=== PATIENT | male | born 1995 | race Caucasian/White ===

== ENCOUNTER 2020-07-29 01:22 | Emergency (ER) | payer OTHER ==
[~2020-07-29] VITALS: Ht 170.2 cm; Wt 81.0 kg
--- NOTE | 2020-07-29 02:10 | PHYS DOC ---
Past History Past Medical History: Constipation General Adult EDM: Chief Complaint: ABDOMINAL PAIN HPI: HPI: ".. I ve had some generalized abdomen pain.. distention.. and now my belly button is red.. and hurts.. 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 Who presents with above hx and complaints of umbilicus cellulitis with abd. distention. Patient has not been [place] recently. Is up-to-date with vaccinations. No history immunosuppression. Has noticed he has had some serous discharge from his bellybutton and now some bloody discharge. Has developed some crusty area around umbilicus. Does have some surrounding inflammation of the umbilicus. No adenopathy. No hernia. Patient is distended. Somewhat tympanic. Patient den ies any trauma. Patient denies any intake of bad food. Patient denies any specific ill contacts. Patient follows at [facility]. No family history of colitis. Patient denies any personal history of colitis. No history of bad food intake. Review of Systems: Review of Systems: Constitutional: Denies fever or chills Eyes: Denies change in visual acuity HENT: Denies nasal congestion or sore throat Respiratory: Denies cough or shortness of breath Cardiovascular: Denies chest pain or edema GI: Complains of generalized abdominal pain, constipation, and umbilicus inflammation. Patient denies nausea, vomiting, bloody stools or diarrhea : Denies dysuria Musculoskeletal: Denies back pain or joint pain Integument: Denies rash Neurologic: Denies headache, focal weakness or sensory changes Endocrine: Denies polyuria or polydipsia Lymphatic: Denies swollen glands Psychiatric: Denies depression or anxiety Family History: Family History: Noncontributory to presentation. Current Medications: Current Meds: See nursing for home meds Allergies: Allergies: No known drug allergies. Physical Exam: PE: Constitutional: Well developed, well nourished, moderate distress, non-toxic appearance. [] HENT: Normocephalic, atraumatic, bilateral external ears normal, oropharynx moist, no oral exudates, nose normal. [] Eyes: PERRLA, EOMI, conjunctiva normal, no discharge. [] Neck: Normal range of motion, no tenderness, supple, no stridor. [] Cardiovascular:Heart rate regular rhythm, no murmur [] Lungs & Thorax: Bilateral breath sounds clear to auscultation [] Abdomen: Bowel sounds normal, soft, no tenderness, no masses, no pulsatile masses. Distended. Tympanic. Has umbilicus inflammation and cellulitis. Mild rebound pain to the umbilicus. Skin: Warm, dry, no erythema, no rash. [] Back: No tenderness, no CVA tenderness. [] Extremities: No tenderness, no cyanosis, no clubbing, ROM intact, no edema. [] No psoas sign. Neurologic: Alert and oriented X 3, normal motor function, normal sensory function, no focal deficits noted. [] Psychologic: Affect anxious, judgement normal, mood normal. [] EKG: EKG: [] Radiology/Procedures: Radiology/Procedures: [][address] [address] IMAGING REPORT Signed PATIENT: NYDIA OROZCO NACCOUNT: [id number] : 1995 LOCATION: ER AGE: 25 SEX: M EXAM STATUS: REG ER ORD. PHYSICIAN: REN SOMMERS MD REASON: distention, discomfort PROCEDURE: ACUTE ABDOMEN SERIES EXAM: 2 VIEW ABDOMEN WITH ONE VIEW CHEST. HISTORY: Abdominal pain and distention. COMPARISON: None. FINDINGS: A frontal view of the chest and supine/upright views of the abdomen are obtained. There are no confluent infiltrates. There is no pneumothorax or pleural effusion. The heart is not enlarged. There is no pneumoperitoneum. There are no distended small bowel loops or significant air-fluid levels. There is gas distally. IMPRESSION: 1. No confluent infiltrates. 2. No evidence of obstruction. Electronically signed by: Cecil Butler MD (07/29/2020 3:00 AM) [facility] DICTATED AND SIGNED BY: DARIN BUTLER MD DATE: 07/29/20 0300 CC: REN SOMMERS MD; PCP,UNKNOWN ~ Heart Score: Risk Factors: Risk Factors: DM, Current or recent (<one month) smoker, HTN, HLP, family history of CAD, obesity. Risk Scores: Score 0 - 3: 2.5% MACE over next 6 weeks - Discharge Home Score 4 - 6: 20.3% MACE over next 6 weeks - Admit for Clinical Observation Score 7 - 10: 72.7% MACE over next 6 weeks - Early Invasive Strategies Course & Med Decision Making: Course & Med Decision Making Pertinent Labs and Imaging studies reviewed. (See chart for details) Patient stay on a clear fluid diet for the next 24 hours. Patient take Tylenol and ibuprofen for pain. Patient to use peroxide clean umbilicus area 4 times a day then apply Polysporin 4 times a day. Patient take Bactrim DS twice a day. Patient follow-up primary care. Patient return if any concerns. Impression: 1. Abdomen pain-distention and constipation 2. Umbilicus cellulitis. [] Dragon Disclaimer: Dragon Disclaimer: This electronic medical record was generated, in whole or in part, using a voice recognition dictation system. Departure Departure: Disposition: 01 DC HOME SELF CARE/HOMELESS Condition: STABLE Referrals: PCP,UNKNOWN (PCP) Scripts Sulfamethoxazole/Trimethoprim (BACTRIM DS TABLET) 1 Each Tablet 1 TAB PO BID for cellulitis for 10 Days, #20 TAB 0 Refills Prov: REN SOMMERS MD 07/29/20 Bacitracin/Polymyxin B Sulfate (POLYSPORIN OINTMENT) 28.3 Gm Oint...g. 28.3 GM TP 4 x day for cellulitis, #120 MISC Prov: REN SOMMERS MD 07/29/20 Hydrogen Peroxide (HYDROGEN PEROXIDE) 1 Ml Solution 1 ML MC 4 x day to Umbilicus for cellitis for 30 Days, MISC Prov: REN SOMMERS MD 07/29/20 Dragon Disclaimer This chart was dictated in whole or in part using Voice Recognition software in a busy, high-work load, and often noisy Emergency Department environment. It may contain unintended and wholly unrecognized errors or omissions. Dragon Disclaimer This chart was dictated in whole or in part using Voice Recognition software in a busy, high-work load, and often noisy Emergency Department environment. It may contain unintended and wholly unrecognized errors or omissions. REN SOMMERS MD Jul 29, 2020 02:10
[2020-07-29] MEDS ORDERED: MAGNESIUM HYDROXIDE 2,400 MG/30 ML ORAL.SUSP. PO ONE (02:30)
[2020-07-29] MEDS ORDERED: SMZ/TMP 800/160MG TABLET. PO ONE (02:30)
[2020-07-29] MEDS ORDERED: cefTRIAXone IM 1 GM VIAL IM ONE (02:30)
[2020-07-29] MEDS ORDERED: KETOROLAC 60 MG/2 ML VIAL. IM ONE (02:30)
--- NOTE | 2020-07-29 03:03 | RAD ---
EXAM: 2 VIEW ABDOMEN WITH ONE VIEW CHEST. HISTORY: Abdominal pain and distention. COMPARISON: None. FINDINGS: A frontal view of the chest and supine/upright views of the abdomen are obtained. There are no confluent infiltrates. There is no pneumothorax or pleural effusion. The heart is not enlarged. There is no pneumoperitoneum. There are no distended small bowel loops or significant air-fluid levels. There is gas distally. IMPRESSION: 1. No confluent infiltrates. 2. No evidence of obstruction. Electronically signed by: Cecil Butler MD (07/29/2020 3:00 AM) [facility]
[2020-07-29] MEDS ORDERED: BACI28.34 TP (03:09)
[2020-07-29] MEDS ORDERED: HYDR1SOL MC (03:09)
[2020-07-29] MEDS ORDERED: SULF1TAB24 PO (03:09)
[2020-07-30 01:22] VITALS: BP 113/73
== END 2020-07-29 03:45 | disposition home or self-care (01) ==
LOC: ER 01:22 → EDBD 01:22 → ER 03:45
DX: L03.316 Cellulitis of umbilicus (principal); K59.00 Constipation, unspecified; R14.0 Abdominal distension (gaseous)
CPT/HCPCS: 74022; 96372; 99284; J0696; J1885